=== PATIENT | female | born 1950 | race Hispanic/Latino ===

== ENCOUNTER → 2018-01-12 | Outpatient (CLI) | payer MEDICARE ==
[~2018-01-12] MED LIST: IOPAMIDOL-370 100 ML VIAL IV ONE; ISOVUE-370 50ML VIAL IV ONE
== END | disposition home or self-care (01) ==
LOC: RAH 07:27
PROVIDERS: ATTEND Nurse Practitioner Family
DX: K43.9 Ventral hernia without obstruction or gangrene (principal); I70.0 Atherosclerosis of aorta
CPT/HCPCS: 73706; Q9967 ×2

== ENCOUNTER → 2019-04-09 | Outpatient (CLI) | payer MEDICARE | END | disposition home or self-care (01) | LOC: SHCH 09:55 | PROVIDERS: ATTEND Internal Medicine Cardiovascular Disease | DX: I87.2 Venous insufficiency (chronic) (peripheral) (principal) | CPT/HCPCS: 93970 ==

== ENCOUNTER → 2021-01-16 | Outpatient (CLI) | payer MEDICARE | END | disposition home or self-care (01) | LOC: SHCH 08:50 | PROVIDERS: ATTEND Internal Medicine Cardiovascular Disease | DX: I20.0 Unstable angina (principal) | CPT/HCPCS: 93306; 93356 ==

== ENCOUNTER 2022-03-16 07:32 | Day surgery (SDC) | payer MEDICARE ==
[2022-03-14 15:35] LABS: HEMATOCRIT 33.2 % (36-48); MEAN CORPUSCULAR HEMOGLOBIN 29.6 pg (27.0-33.0); MEAN CORPUSCULAR HGB CONC 31.6 g/dL (32.0-36.0); MEAN CORPUSCULAR VOLUME 93.5 fL (79-99); RED BLOOD CELL COUNT(AUTO) 3.55 MIL/uL (4.00-5.50); RED CELL DISTRIBUTION WIDTH 14.4 % (11.0-15.5)
[2022-03-14 15:47] LABS: INR 0.93 (0.85-1.15); PROTHROMBIN TIME 10.1 SEC (9.6-11.6)
[2022-03-14 15:48] LABS: PARTIAL THROMBOPLASTIN TIME 26.8 SEC (26.3-35.5)
[2022-03-14 16:14] LABS: CREATININE 8.2 mg/dL (0.5-1.5)
[2022-03-15 11:34] VITALS: BP 150/48
[~2022-03-16] VITALS: Ht 157.5 cm; Wt 119.5 kg
[2022-03-16] VITALS (17 sets, daily range): BP systolic 130–158; BP diastolic 52–83
[~2022-03-16 07:32] MED LIST changes: +AMLO-258 PO; +CALC667C10 PO; +CARV12.511 PO; +CEFAZOLIN SODIUM 2 GM VIAL IV ONE; +FOLI1TAB85 PO; +GLIM4TAB36 PO; -IOPAMIDOL-370 100 ML VIAL IV ONE; -ISOVUE-370 50ML VIAL IV ONE; +LORA-192 PO; +TRAM50TA4 PO; +VITAMIN D3 PO
[2022-03-16] MEDS ORDERED: 0.9% NACL 500ML IV.SOLN 500 ML IV ONE (08:42)
[2022-03-16] MEDS ORDERED: CEFAZOLIN SODIUM 1 GM VIAL ONE (08:42)
[2022-03-16] MEDS ORDERED: LIDOCAINE PF 100MG/5ML (2%) SYRINGE 5ML ONE (13:01)
[2022-03-16] MEDS ORDERED: PROPOFOL 10 MG/ML 20ML VIAL IV ONE (13:01)
[2022-03-16] MEDS ORDERED: FENTANYL CITRATE PF 50 MCG/1 ML 2ML VIAL ONE (13:04)
[2022-03-16] MEDS ORDERED: HEPARIN 1,000 UNIT VIAL ONE (13:05)
[2022-03-16] MEDS ORDERED: ROCURONIUM 10MG/1ML SYR 10 MG/ML ML ONE ×2 (13:14→14:19)
[2022-03-16] MEDS ORDERED: CEFAZOLIN SODIUM 2 GM VIAL IV ONE (13:30)
[2022-03-16] MEDS ORDERED: EPHEDRINE SULFATE 50 MG/ML AMPULE ONE (13:52)
[2022-03-16] MEDS ORDERED: HEPARIN 10,000 UNIT/10ML (1,000 UNIT/ML) VIAL ONE (14:34)
[2022-03-16] MEDS ORDERED: ONDANSETRON 4MG INJ ONE (14:48)
[2022-03-16] MEDS ORDERED: DEXAMETHASONE SOD PHOSPHATE 4 MG/ML 1ML VIAL ONE (14:49)
[2022-03-16] MEDS ORDERED: BUPIVACAINE/PF 0.5% 30ML VIAL ONE (15:18)
[2022-03-16] MEDS ORDERED: LIDOCAINE HCL MDV 0.5% 50ML VIAL IJ ONE (15:18)
[2022-03-16] MEDS ORDERED: NEOSTIGMINE 5MG/5ML SYR IV ONE (15:18)
[2022-03-16] MEDS ORDERED: GLYCOPYRROLATE 1 MG/5 ML SYRINGE ONE (15:19)
[2022-03-16] MEDS ORDERED: BUPIVACAINE/PF 0.5% 30ML VIAL INJ ONE (15:25)
[2022-03-16] MEDS ORDERED: LIDOCAINE HCL-MPF 0.5% 50ML VIAL IJ ONE (15:25)
== END 2022-03-16 17:05 | disposition home or self-care (01) ==
LOC: DAH 07:32
PROVIDERS: ATTEND Thoracic Surgery (Cardiothoracic Vascular Surgery)
DX: E11.22 Type 2 diabetes mellitus with diabetic chronic kidney disease (principal); I13.11 Hypertensive heart and chronic kidney disease without heart failure, with stage 5 chronic kidney disease, or end stage renal disease; N18.6 End stage renal disease; E78.5 Hyperlipidemia, unspecified; M19.90 Unspecified osteoarthritis, unspecified site; F41.9 Anxiety disorder, unspecified; Z99.2 Dependence on renal dialysis; Z79.899 Other long term (current) drug therapy; Z79.01 Long term (current) use of anticoagulants; Z98.890 Other specified postprocedural states
CPT/HCPCS: 80048; 85027; 85610; 85730; 86850; 86900; 86901; 87426; 36415 ×2; 71045; 93005; 36830; 84132; 82948 ×2; A6260; J1100; A4663; A6207; J7030; A4452; J0690 ×2; J7040; J3010; J3490 ×6; J2710; J2001; J1644 ×2; J2704; J2405; G0168; A4649; C1713 ×2; A4930; C1768; A5120; A4215; A4223; A4222; A4221